=== PATIENT | female | born 1930 | race Two or more races ===

== ENCOUNTER 2016-06-28 20:03 | Inpatient (IN) | payer MEDICARE, MEDICAID ==
[2016-06-28] MEDS ORDERED: Sodium Chloride 0.9% 1,000 ML IV ONE (20:29)
--- NOTE | 2016-06-28 20:39 | ED Physician Chart ---
Chief Complaint/HPI - Patient Information Date Seen:: 06/28/16 Time Seen:: 20:00 Chief Complaint:: Abnormal BUN, creat. History of Present Illness:: Pt. of Dr. Koroma sent in for abnl. lab BUN/creat = 100/3.91 Possibly not eating well, failure to thrive. Allergies:: Allergies Allergy/AdvReac Type Severity Reaction Status Date / Time Influenza Virus Vaccines Allergy Verified 06/28/16 20:17 pneumococcal vaccine Allergy Verified 06/28/16 20:17 Vitals:: Vital Signs - 8 hr 06/28/16 20:12 Temp 98.2 F HR 70 RR 19 BP 156/60 O2 Sat % 97 Historian:: EMS, Medical Records Review of Systems - Review of Systems General/Constitutional: No fever Skin: Skin lesions Eyes: No loss of vision Neck: No neck pain Cardio Vascular: No chest pain, No palpitations Pulmonary: No SOB GI: Other (loss of appetite) G/U: No dysuria Endocrine: Other (hx of DM) Allergic/Immuno: No urticaria Neurological: No syncope Past Medical History - Past Medical History Past Medical History: HTN, DM, CAD, CHF, Arthritis, Other (Hx of "chronic renal disease") Family History: Other (not obtainable) Social History: Non Smoker, No Alcohol, Care Facility Surgical History: None Medication Reviewed:: acetamenophen, atorvastatin, fenfibrate, folic, Fleets, Humulin/insulin, lasix Januvia, metoprolol, MOM, neurontin, nitro, Plavix Family Medical History - Family Member Mother History Unknown: Yes Physical Exam - Physical Examination General/Constitutional: Awake, Well-developed, well-nourished, Alert, No distress, Non-toxic appearing Other Gen/Cons comments:: confusion Head: Atraumatic Eyes: Lids, conjuctiva normal, PERRL, EOMI Skin: No skin lesions ENMT: External ears, nose nl, TM canals nl, Lips, teeth, gums nl, Oropharynx nl Neck: Nontender, Full ROM w/o pain Respiratory: Nl effort/Exclusion, Clear to Auscultation, No Wheeze/Rhonchi/Rales Cardio Vascular: RRR, No murmur, gallop, rubs GI: No tenderness/rebounding/guarding, No organomegaly : No CVA tenderness Extremities: No tenderness or effusion, normal strength in all extremities Neuro/Psych: DTR's symmetric, Normal motor strength, No focal deficits Misc: Normal back Labs/Radiology/EKG Results - Lab Results Results: CXR: borderline cardiomegally. No infiltrate. EKG: NSR at 68 with nl. axis. Poor R wave progression. CMP shows BUN/creat of 107/3.7 BNP normal.PT nl. PTT 23.2 CPK and EtOH normal.Ammonia nl. Mag. Nl. Trop normal. ED Septic Shock - . Is Septic Shock (SBP<90, OR Lactate>4 mmol\\L) present?: No - <6hrs of presentation: Vital Signs: Vital Signs - 8 hr 06/28/16 20:12 Temp 98.2 F HR 70 RR 19 BP 156/60 O2 Sat % 97 Reassessment (Disposition) - Reassessment Reassessment Condition:: Unchanged - Diagnosis Diagnosis:: Dx: Acute dehydration and renal failure. - Patient Disposition Discharge/Transfer:: Acute Care w/in this hosp Accepting Physician:: Dr. Etienne Time Called:: 2204 Time Responded:: 22:15 Discussion with Medical Provider:: Dr. Etienne will admit. He is giving orders. Admitted to:: Med/Surg Condition at Disposition:: Improved ED Discharge Plan - Patient Disposition Admit/Discharge/Transfer: Acute Care w/in this hosp Condition at Disposition: Guarded
[2016-06-28 20:49] LABS: % BASOPHILS 0.4 % (0.0-2.0); % EOSINOPHILS 2.1 % (0.0-5.0); % LYMPHOCYTES 35.4 % (20.0-50.0); % MONOCYTES 9.9 % (2.0-10.0); % NEUTROPHILS 52.2 % (40.0-80.0); HEMATOCRIT 47.8 % (35.0-45.0); HEMOGLOBIN 14.9 gm/dL (11.7-16.1); MEAN CELL VOLUME 85.6 fl (81-100); MEAN CORPUSCULAR HEMOGLOBIN 26.7 pg (27.0-31.0); MEAN CORPUSCULAR HGB CONC 31.2 pg (28.0-36.0); MEAN PLATELET VOLUME 10.7 fl; NEUTROPHILE ABSOLUTE 4.1 Th/cmm (1.8-8.0); PLATELET COUNT 164 Th/cmm (150-400); RED BLOOD COUNT 5.58 Mil/cmm (3.80-5.20); RED CELL DISTRIBUTION WIDTH 13.8 % (11.5-20.0); WHITE BLOOD COUNT 7.9 Th/cmm (4.8-10.8)
[2016-06-28 20:59] LABS: INR 1.04 (0.5-1.4); PROTHROMBIN TIME (TEST) 10.3 SECONDS (9.5-11.5)
[2016-06-28 21:03] LABS: ALKALINE PHOSPHATASE 87 U/L (34-104); ANION GAP 15.9 (7.0-16.0); BILIRUBIN,TOTAL 0.4 mg/dL (0.3-1.0); BUN/CREATININE RATIO 28.9; CALCIUM SERUM 10.2 mg/dL (8.6-10.3); CARBON DIOXIDE 28.8 mEq/L (21.0-31.0); CHLORIDE 90 mEq/L (98-107); CREATININE - SERUM 3.7 mg/dL (0.6-1.2); GLUCOSE 329 mg/dL (70-105); POTASSIUM SERUM 4.7 mEq/L (3.5-5.1); SGOT 20 U/L (13-39); SGPT/ALT 15 U/L (7-52); SODIUM SERUM 130 mEq/L (136-145)
[2016-06-28 21:18] LABS: BUN - UREA NITROGEN 107 mg/dL (7-25)
[2016-06-28 21:28] LABS: CREATINE KINASE MB 2.8 ng/mL (0.6-6.3)
--- NOTE | 2016-06-29 00:35 | Admit Criteria Form ---
Admit Criteria Forms - Admit Criteria Diagnosis: DEHYDRATION Clinical Indications for Admission to Inpatient Care (Place 'X' for any and all applicable criteria): Admission is indicated for ANY ONE of the following (1)(2)(3)(4)(5): [X ]I. Inpatient admission required rather than observation care (see Dehydration: Observation Care guideline as appropriate) because of ANY ONE of the following: [ ]a) Vomiting that is severe or persistent [ ]b) Severe electrolyte abnormalities requiring inpatient care [ ]c) Hemodynamic instability [ ]d) IV fluid to replace significant ongoing losses (greater than 3 L/m2 per day (10) (11) [ ]e) Parenteral nutrition regimen that must be implemented on inpatient basis [ X]f) Other condition,treatment or monitoring requiring inpatient admission [ ]II. Serious cause for dehydration requiring acute hospitalization (eg, bowel obstruction, increased intracranial pressure, infectious cause) Extended stay beyond goal length of stay may be needed for(1)(3 )(4)(17): [ ]a) Chronic severe dehydration [ ]b) Persistent vital sign changes, severe electrolyte imbalance, or diagnosed cause of dehydration that requires continued hospitalization (eg, bowel obstruction, increased intracranial pressure) [ ]c) Older patients (65 years or older) [ ]d) Severe comorbid illness (eg, renal failure, heart failure, poorly controlled diabetes) The original [employer] content created by [employer] has been revised. The portions of the content which have been revised are identified through the use of italic text or in bold, and [facility] has neither reviewed nor approved the modified material. All other unmodified content is copyright [employer] [facility] [facility]. Please see references footnoted in the original [employer] [facility] edition 2016 Admit Criteria Met?: Yes
[2016-06-29] MEDS: Sodium Chloride 0.9% 1,000 ML IV SCH ×2 (00:51→13:56)
[2016-06-29 04:52] VITALS: BP 126/58
[2016-06-29] MEDS: INSULIN ASPART, RECOMBINANT 100 UNITS/ML SUBQ SCH ×4 (06:47→21:00)
[2016-06-29 07:08] LABS: % BASOPHILS 0.7 % (0.0-2.0); % EOSINOPHILS 2.5 % (0.0-5.0); % LYMPHOCYTES 37.8 % (20.0-50.0); % MONOCYTES 10.6 % (2.0-10.0); % NEUTROPHILS 48.4 % (40.0-80.0); HEMATOCRIT 43.6 % (35.0-45.0); HEMOGLOBIN 14.2 gm/dL (11.7-16.1); MEAN CELL VOLUME 83.8 fl (81-100); MEAN CORPUSCULAR HEMOGLOBIN 27.3 pg (27.0-31.0); MEAN CORPUSCULAR HGB CONC 32.6 pg (28.0-36.0); MEAN PLATELET VOLUME 10.5 fl; NEUTROPHILE ABSOLUTE 3.3 Th/cmm (1.8-8.0); PLATELET COUNT 149 Th/cmm (150-400); RED BLOOD COUNT 5.21 Mil/cmm (3.80-5.20); RED CELL DISTRIBUTION WIDTH 13.4 % (11.5-20.0); WHITE BLOOD COUNT 6.8 Th/cmm (4.8-10.8)
[2016-06-29 07:37] LABS: ALKALINE PHOSPHATASE 77 U/L (34-104); ANION GAP 14.8 (7.0-16.0); BILIRUBIN,TOTAL 0.3 mg/dL (0.3-1.0); BUN/CREATININE RATIO 32.1; CALCIUM SERUM 9.3 mg/dL (8.6-10.3); CHLORIDE 94 mEq/L (98-107); CREATININE - SERUM 3.4 mg/dL (0.6-1.2); GLUCOSE 259 mg/dL (70-105); POTASSIUM SERUM 3.8 mEq/L (3.5-5.1); SGOT 15 U/L (13-39); SGPT/ALT 13 U/L (7-52); SODIUM SERUM 131 mEq/L (136-145)
[2016-06-29 07:53] LABS: BUN - UREA NITROGEN 109 mg/dL (7-25)
[2016-06-29 08:05] LABS: MAGNESIUM 2.2 mg/dL (1.9-2.7)
[2016-06-29] MEDS ORDERED: Fleet Enema 135 mL RC SCH (08:45)
[2016-06-29] MEDS ORDERED: Non-Formulary Item 1 EA (Cranberry Fruit Concentrate [Cranberry] 450 MG) PO SCH (09:00)
[2016-06-29] MEDS ORDERED: VTE Chemical Prophylaxis Screen/Admission MC PRN (09:20)
[2016-06-29] MEDS ORDERED: Fleet Enema 135 mL RC PRN (09:54)
[2016-06-29] MEDS: Polyvinyl Alcohol Ophth Soln 15 mL Bottle EACH EYE SCH ×2 (10:04→16:28)
[2016-06-29] MEDS: Ferrous Sulfate 325 MG TAB PO SCH ×2 (10:05→16:28)
[2016-06-29] MEDS: DOPamine 400 MG/250 ML BAG IV PRN (10:09)
--- NOTE | 2016-06-29 11:23 | History & Physical ---
PATIENT IDENTIFICATION: The patient is an 85-year-old female. CHIEF COMPLAINT: Sent to Emergency Room for abnormal labs evaluation. HISTORY OF PRESENT ILLNESS: An 85-year-old female with history of type 2 diabetes, hypertension, coronary artery disease, chronic syndrome, CKD III, has been living at [facility] followed by Dr. Thorpe as an outpatient, noted by nursing staff that her routine lab revealed BUN and creatinine of 100+ with creatinine of 3, which was more than expected. The patient was on diuretics. The patient has been having more p.o. intake as well. The patient was sent to Emergency Room and after being evaluated by Emergency Room Chris, the patient has been admitted to the hospital for further treatment. PAST MEDICAL HISTORY: Remarkable for: 1. Diabetes. 2. Hypertension. 3. Hyperlipidemia. 4. Chronic kidney disease. 5. DJD. 6. Peripheral vascular disease. 7. Peripheral neuropathy. 8. Coronary artery disease. MEDICATIONS AT HOME: The patient is taking multiple medications, which includes atorvastatin, benazepril, metoprolol, magnesium oxide, Lasix, metolazone, insulin, Plavix, fenofibrate, cranberry juice, ferrous sulfate, fleets enema, folic acid, gabapentin, sitagliptin and topiramate. ALLERGIES: THE PATIENT IS ALLERGIC TO INFLUENZA VIRUS AND PNEUMOCOCCAL VACCINE. SOCIAL HISTORY: The patient is a intermediate resident. No smoking cigarette, alcohol or drug use. FAMILY MEDICAL HISTORY: Remarkable for diabetes and hypertension. REVIEW OF SYSTEMS: The patient admits to feel very weak and tired. The patient currently denies any chest pain. Denies any shortness of breath or palpitation. Has a very poor p.o. intake. Denies any seizure or syncopal episode. Denies any headache. Denies any diarrhea, dysuria, hematuria, hematochezia, melena. No seizure or syncopal episode. PHYSICAL EXAMINATION: GENERAL: The patient is alert, awake, oriented, lying in the bed. VITAL SIGNS: Temperature 97.9, pulse is 77, respiratory rate 18, blood pressure 138/64. SKIN: Warm to touch. HEENT: Normocephalic, atraumatic. Extraocular muscles are intact. Tongue was pink and coated. Poor dentition noted. NECK: Supple, no JVD, no hepatojugular reflux, no lymphadenopathy, thyromegaly or carotid bruit. HEART: Both heart sounds are regular. No S3, no S4. CHEST: Lung equal in expansion with no expiratory wheezing. ABDOMEN: Soft. No guarding, no rigidity. Liver and spleen not palpable. No palpable mass. EXTREMITIES: No edema, no cyanosis. Peripheral pulses +1. No calf tenderness. NEUROLOGIC: Alert, awake, oriented to time, place, and person, 2-12 cranial nerves are intact. Power in upper and lower extremities 5-. Sensation to touch intact. [place] in both toes are going down. AVAILABLE DIAGNOSTIC DATA: Performed in the Emergency Room remarkable for BUN and creatinine of 107 and 3.7 with glucose of ____, calcium 10.2. AST and ALT are normal. CPKs are normal. Albumin, globulins and thyroid functions are also normal. Hemoglobin is also normal. Chest x-ray has no infiltrate, no congestions. CLINICAL IMPRESSION: 1. Acute on chronic kidney injury. 2. Diabetes. 3. Hypertension. 4. Chronic kidney disease, III. 5. Peripheral vascular disease. 6. Coronary artery disease. 7. Degenerative joint disease. 8. Decrease in p.o. intake, probably from uremia. PLAN: 1. Admit this patient to [facility]. 2. IV fluids. 3. Hold diuretics. 4. Renal dose dopamine. 5. Nephrology consultation. 6. Glucoscan a.c. and bedtime. 7. Sliding scale insulin. 8. Appropriate home medicine reconciliation. 9. Follow lab. 10. Follow consult recommendation. 12. Care plan reviewed and discussed with staff. JOB# [id number]
--- NOTE | 2016-06-29 11:27 | Diagnostic Imaging Report ---
Portable chest x-ray History: Cough Allowing for portable technique the heart size is normal. Atherosclerotic calcination seen in the aortic arch. No focal pulmonary parenchymal processes. No hilar or mediastinal abnormalities. Impression: No acute abnormalities.
[2016-06-29 12:20] LABS: URINE BILIRUBIN NEGATIVE (NEGATIVE); URINE BLOOD NEGATIVE (NEGATIVE); URINE COLOR YELLOW; URINE GLUCOSE (UA) NEGATIVE (NEGATIVE); URINE KETONE NEGATIVE (NEGATIVE); URINE PROTEIN NEGATIVE (NEGATIVE); URINE UROBILINOGEN 0.2 E.U./dL (0.2 - 1.0)
[2016-06-29 12:24] LABS: URINE BACTERIA NONE SEEN /hpf (NONE SEEN); URINE EPITHELIAL CELLS FEW /lpf (FEW); URINE RBC NONE SEEN /hpf (0-5); URINE WBC NONE SEEN /hpf (0-5)
[2016-06-29 13:02] LABS: AMPHETAMINE URINE NEGATIVE (NEGATIVE); BARBITURATES URINE NEGATIVE (NEGATIVE)
--- NOTE | 2016-06-29 19:40 | Consultation ---
RENAL CONSULTATION LOCATION: [facility] ICU, bed number 8. ATTENDING PHYSICIAN: Dr. Etienne. I thank you very much to Dr. Etienne for this consult. IDENTIFICATION: This is an 85-year-old female patient known to me for last many years. I am following this patient in the office for her CKD and CHF. HOSPITAL COURSE: The patient was seen about 6 weeks ago in the office. The patient lately has worsening of the leg swelling, not improving with the positioning and Lasix. At that time, the patient was started on Zaroxolyn with good response. Meanwhile, the patient was supposed to see me in the office after the blood test done. The blood tests were suggestive of severe kidney failure and hence the patient has been now admitted for further treatment. The patient is conscious and alert. She has a good oxygen saturation, but she becomes hypoxic while she is sleeping. Church catheter has been placed in. The patient has a good urine output at this time. The patient denies any complaint of chest pain or shortness of breath. Her leg swelling has subsided. She denies any fever. No history of vomiting or diarrhea. The patient does have severe weakness. The patient is accompanied by the family members at this time. There is no history of hematuria. No history of melena. No history of any sore throat, or lymphadenopathy. The patient is taking all her medication at shelter regularly. The patient is a resident of a shelter. PAST MEDICAL AND SURGICAL HISTORY: History of coronary artery disease, history of CHF, diabetes mellitus, diabetic neuropathy, diabetic nephropathy, hyperlipidemia, hypertension, obesity, DJD, and obstructive sleep apnea. MEDICATIONS: The patient's medications at shelter include insulin, Plavix, fenofibrate, ferrous sulfate, folic acid, gabapentin, , sitagliptin, atorvastatin, , Lasix, and Zaroxolyn. SOCIAL HISTORY: No history of alcoholism and smoking. PHYSICAL EXAMINATION: GENERAL: This is an 85-year-old female patient conscious, alert, not in acute distress. VITAL SIGNS: Blood pressure initially was as low as 106/49, at this time 129/57; respirations 16, oxygen saturation 95, and heart rate 94. Yesterday intake 445, output 330. Today, intake is 1465 with urine output of about 1000 mL. HEENT: Head is normocephalic and atraumatic. Ear, nose, and throat: No discharge or bleeding. NECK: No stiffness and no lymphadenopathy. LUNGS: Good air entry. No rales or rhonchi. HEART: Regular. [place] in sixth intercostal space outside the midclavicular line. ABDOMEN: Soft and nondistended. Bowel sounds present. No flank tenderness. No suprapubic fullness. EXTREMITIES: No edema of the leg. Trace ankle edema. No calf tenderness. SIGNIFICANT LAB: WBC 6.8, hemoglobin 14.2, and platelet count 149,000. Sodium 130, potassium 4.7, chloride 90, CO2 of 28, BUN 107, creatinine 3.7, glucose 329, calcium 10.2, phosphorus 4, magnesium 2.2, and albumin 3.5. Urinalysis negative for nitrite, cast, and wbc. Lethal alcohol less than 10. ASSESSMENT: 1. An 85-year-old female patient with worsening of chronic kidney disease 3-4. 2. Volume depletion. 3. History of hypertension. 4. Diabetes mellitus. 5. Hyperlipidemia. 6. Peripheral vascular disease. 7. Obstructive sleep apnea. 8. Obesity. 9. History of coronary artery disease. 10. History of congestive heart failure. PLAN: There is no clinical evidence of CHF at this time. We will hold diuretics, GEOVANY inhibitors, and statin on this patient. Start the patient on IV hydration and IV renal dose dopamine. Obtain urine for eosinophil count. Obtain phosphorus, TSH, and CMP in the morning. Kidney ultrasound has been ordered. We will also check echocardiogram. Case has been discussed with the patient's family at length. If the patient does not improve, then she may need dialysis. Hopefully, the patient will start improving since urine output is increasing. I will follow this patient with you. JOB# [id number]
[2016-06-29] MEDS ORDERED: Non-Formulary Item 1 EA (Atorvastatin Calcium [Lipitor] 20 MG) PO SCH (21:00)
[2016-06-29] MEDS ORDERED: Non-Formulary Item 1 EA (Fenofibrate Nanocrystallized [Tricor] 145 MG) PO SCH (21:00)
[2016-06-30] MEDS: Sodium Chloride 0.9% 1,000 ML IV SCH ×2 (04:51→18:24)
[2016-06-30 05:17] LABS: % BASOPHILS 0.9 % (0.0-2.0); % LYMPHOCYTES 30.3 % (20.0-50.0); % MONOCYTES 8.5 % (2.0-10.0); % NEUTROPHILS 59.3 % (40.0-80.0); HEMATOCRIT 45.1 % (35.0-45.0); HEMOGLOBIN 14.9 gm/dL (11.7-16.1); MEAN CELL VOLUME 83.3 fl (81-100); MEAN CORPUSCULAR HEMOGLOBIN 27.5 pg (27.0-31.0); MEAN PLATELET VOLUME 11.1 fl; NEUTROPHILE ABSOLUTE 5.4 Th/cmm (1.8-8.0); PLATELET COUNT 166 Th/cmm (150-400); RED BLOOD COUNT 5.41 Mil/cmm (3.80-5.20); RED CELL DISTRIBUTION WIDTH 14.2 % (11.5-20.0)
[2016-06-30 05:29] LABS: WHITE BLOOD COUNT 9.2 Th/cmm (4.8-10.8)
[2016-06-30 05:38] LABS: ALKALINE PHOSPHATASE 75 U/L (34-104); ANION GAP 11.5 (7.0-16.0); BILIRUBIN,TOTAL 0.4 mg/dL (0.3-1.0); BUN/CREATININE RATIO 35.8; CALCIUM SERUM 9.2 mg/dL (8.6-10.3); CARBON DIOXIDE 24.7 mEq/L (21.0-31.0); CHLORIDE 100 mEq/L (98-107); CREATININE - SERUM 2.6 mg/dL (0.6-1.2); GLUCOSE 322 mg/dL (70-105); MAGNESIUM 2.1 mg/dL (1.9-2.7); PHOSPHOROUS 3.2 mg/dL (2.5-5.0); POTASSIUM SERUM 4.2 mEq/L (3.5-5.1); SGOT 17 U/L (13-39); SGPT/ALT 15 U/L (7-52); SODIUM SERUM 132 mEq/L (136-145)
[2016-06-30 06:12] LABS: BUN - UREA NITROGEN 93 mg/dL (7-25)
[2016-06-30] MEDS ORDERED: Non-Formulary Item 1 EA (Insulin Aspart Mix 70/30 [Novolog Mix 70/30] 30 UNITS) SUBQ SCH (06:30)
[2016-06-30] MEDS: INSULIN ASPART, RECOMBINANT 100 UNITS/ML SUBQ SCH ×4 (06:58→20:16)
[2016-06-30] MEDS: INSULIN ASPART MIX SUBQ SCH (07:27)
[2016-06-30] MEDS: Polyvinyl Alcohol Ophth Soln 15 mL Bottle EACH EYE SCH ×2 (08:25→16:39)
[2016-06-30] MEDS: Ferrous Sulfate 325 MG TAB PO SCH ×2 (08:26→16:38)
--- NOTE | 2016-06-30 20:09 | Cardiology ---
Patient of Dr. Etienne. M-MODE ECHOCARDIOGRAM: M-mode technically poor. 2D ECHO: Only structure visualized in apical 4-chamber view, which showed normal-sized left ventricle with hypertrophy of the left ventricle. Left atrium normal. Right ventricular cavity, right atrium normal. No pericardial effusion. CONCLUSION: Hypertrophy of the left ventricle, ejection fraction 55%. Doppler study shows trace tricuspid regurgitation. JOB# [id number]
[2016-07-01 05:14] LABS: % LYMPHOCYTES 25.6 % (20.0-50.0); MEAN PLATELET VOLUME 10.9 fl
[2016-07-01 05:20] LABS: % BASOPHILS 0.4 % (0.0-2.0); % EOSINOPHILS 1.6 % (0.0-5.0); % MONOCYTES 8.7 % (2.0-10.0); % NEUTROPHILS 63.7 % (40.0-80.0); HEMATOCRIT 43.7 % (35.0-45.0); HEMOGLOBIN 14.4 gm/dL (11.7-16.1); MEAN CELL VOLUME 83.9 fl (81-100); MEAN CORPUSCULAR HEMOGLOBIN 27.6 pg (27.0-31.0); MEAN CORPUSCULAR HGB CONC 32.9 pg (28.0-36.0); NEUTROPHILE ABSOLUTE 6.4 Th/cmm (1.8-8.0); PLATELET COUNT 159 Th/cmm (150-400); RED BLOOD COUNT 5.21 Mil/cmm (3.80-5.20); RED CELL DISTRIBUTION WIDTH 13.9 % (11.5-20.0); WHITE BLOOD COUNT 10.1 Th/cmm (4.8-10.8)
[2016-07-01 05:52] LABS: ALB/GLOB RATIO 0.9 (1.0-1.8); ALKALINE PHOSPHATASE 66 U/L (34-104); ANION GAP 12.8 (7.0-16.0); BILIRUBIN,TOTAL 0.3 mg/dL (0.3-1.0); BUN - UREA NITROGEN 69 mg/dL (7-25); BUN/CREATININE RATIO 34.5; CALCIUM SERUM 9.1 mg/dL (8.6-10.3); CARBON DIOXIDE 24.4 mEq/L (21.0-31.0); CHLORIDE 102 mEq/L (98-107); GLUCOSE 301 mg/dL (70-105); POTASSIUM SERUM 4.2 mEq/L (3.5-5.1); SGOT 13 U/L (13-39); SGPT/ALT 12 U/L (7-52); SODIUM SERUM 135 mEq/L (136-145)
[2016-07-01] MEDS: DOPamine 400 MG/250 ML BAG IV PRN (06:39)
[2016-07-01] MEDS: INSULIN ASPART, RECOMBINANT 100 UNITS/ML SUBQ SCH ×4 (06:41→20:31)
[2016-07-01] MEDS: INSULIN ASPART MIX SUBQ SCH (06:44)
[2016-07-01] MEDS: Sodium Chloride 0.9% 1,000 ML IV SCH ×2 (06:53→13:02)
[2016-07-01] MEDS: INSULIN 70/30 100 UNITS/ML SUBQ SCH (08:15)
[2016-07-01] MEDS: Polyvinyl Alcohol Ophth Soln 15 mL Bottle EACH EYE SCH ×2 (08:41→16:15)
[2016-07-01] MEDS: Ferrous Sulfate 325 MG TAB PO SCH ×2 (08:42→16:15)
[2016-07-01] MEDS: Sodium Chloride 0.45% 1,000 ML IV SCH (14:00)
[2016-07-01] MEDS: Insulin Detemir 100 units/mL 10mL Vial SUBQ SCH (21:00)
[2016-07-02 05:17] LABS: HEMOGLOBIN 13.5 gm/dL (11.7-16.1)
[2016-07-02 05:39] LABS: ALB/GLOB RATIO 0.9 (1.0-1.8); ALKALINE PHOSPHATASE 59 U/L (34-104); ANION GAP 9.3 (7.0-16.0); BILIRUBIN,TOTAL 0.3 mg/dL (0.3-1.0); BUN - UREA NITROGEN 59 mg/dL (7-25); BUN/CREATININE RATIO 29.5; CARBON DIOXIDE 24.9 mEq/L (21.0-31.0); CHLORIDE 101 mEq/L (98-107); GLUCOSE 238 mg/dL (70-105); POTASSIUM SERUM 4.2 mEq/L (3.5-5.1); SGOT 11 U/L (13-39); SGPT/ALT 10 U/L (7-52); SODIUM SERUM 131 mEq/L (136-145)
[2016-07-02 05:54] LABS: % BASOPHILS 0.6 % (0.0-2.0); % EOSINOPHILS 1.8 % (0.0-5.0); % LYMPHOCYTES 30.5 % (20.0-50.0); % MONOCYTES 7.8 % (2.0-10.0); % NEUTROPHILS 59.3 % (40.0-80.0); MEAN CELL VOLUME 85.5 fl (81-100); MEAN CORPUSCULAR HEMOGLOBIN 27.6 pg (27.0-31.0); MEAN CORPUSCULAR HGB CONC 32.3 pg (28.0-36.0); MEAN PLATELET VOLUME 10.7 fl; NEUTROPHILE ABSOLUTE 5.6 Th/cmm (1.8-8.0); PLATELET COUNT 141 Th/cmm (150-400); RED BLOOD COUNT 4.91 Mil/cmm (3.80-5.20); WHITE BLOOD COUNT 9.5 Th/cmm (4.8-10.8)
[2016-07-02] MEDS: Sodium Chloride 0.45% 1,000 ML IV SCH (06:26)
[2016-07-02] MEDS: INSULIN 70/30 100 UNITS/ML SUBQ SCH (06:28)
[2016-07-02] MEDS ORDERED: INSULIN 70/30 100 UNITS/ML SUBQ SCH (06:30)
[2016-07-02] MEDS: INSULIN ASPART, RECOMBINANT 100 UNITS/ML SUBQ SCH ×4 (06:33→21:06)
[2016-07-02] MEDS: Polyvinyl Alcohol Ophth Soln 15 mL Bottle EACH EYE SCH ×2 (10:11→17:18)
[2016-07-02] MEDS: Ferrous Sulfate 325 MG TAB PO SCH (10:11)
[2016-07-02] MEDS ORDERED: Probiotic Screen MC PRN (14:27)
[2016-07-02] MEDS: Insulin Detemir 100 units/mL 10mL Vial SUBQ SCH (21:20)
--- NOTE | 2016-07-03 04:18 | Consultation ---
The patient of Dr. Etienne. HISTORY AND PHYSICAL: This is an 85-year-old female patient with a known history of congestive heart failure, CKD stage III had been ____ the patient had more swelling in the legs, shortness of breath, elevated BUN and creatinine and at this time, the patient was sent to the Emergency Room and admitted to ICU. No history of PND or orthopnea. The patient is sleepy and lethargic at the present time. PAST MEDICAL HISTORY: The patient has a history of diabetes mellitus type 2, diabetic CKD stage III, congestive heart failure, diastolic dysfunction, hypertension, hyperlipidemia, diabetic peripheral vascular disease, diabetic peripheral neuropathy, stable angina, obstructive sleep apnea, obesity and osteoporosis. The patient is wheelchair bound. FAMILY HISTORY: Unremarkable. SOCIAL HISTORY: No history of smoking or alcohol abuse. ALLERGIES: The patient is allergic to pneumonia and penicillin vaccine. PHYSICAL EXAMINATION: VITAL SIGNS: Blood pressure 128/82, pulse 70, respirations 28. HEAD: Normocephalic. No lumps or bumps. EYES: Pupils equal, reactive to light. Fundi show AV nicking, sclerae white, conjunctivae pink. NECK: Carotid 2+. Normal upstroke. JVD flat. Thyroid not palpable. Lymph nodes not palpable. CHEST: Shows increased AP diameter. No kyphosis, scoliosis. LUNGS: Bilateral bronchovesicular breath sounds. HEART: PMI fifth intercostal space with lateral to midclavicular line. S1, S2. No S3, S4. Systolic murmur, grade 2/6, lower left sternal border without radiation. ABDOMEN: Soft. Liver, spleen not palpable. Hepatojugular reflex positive, bowel sounds active. RECTAL: Deferred. EXTREMITIES: Peripheral pulses 2+. No pedal edema. CLINICAL IMPRESSION: Congestive heart failure, diastolic dysfunction, diabetes mellitus type 2, diabetic CKD stage III, acute on chronic, hypertension, hyperlipidemia, diabetic peripheral vascular disease, diabetic peripheral neuropathy, stable angina, obstructive sleep apnea, obesity and osteoporosis. PLAN: Admit the patient. We will continue the patient on present care. The patient also to get echocardiogram and follow the patient closely in ICU. JOB# [id number]
[2016-07-03 06:03] LABS: ANION GAP 10.7 (7.0-16.0); BUN - UREA NITROGEN 46 mg/dL (7-25); BUN/CREATININE RATIO 27.1; CALCIUM SERUM 9.1 mg/dL (8.6-10.3); CARBON DIOXIDE 21.4 mEq/L (21.0-31.0); CHLORIDE 106 mEq/L (98-107); CREATININE - SERUM 1.7 mg/dL (0.6-1.2); GLUCOSE 220 mg/dL (70-105); POTASSIUM SERUM 5.1 mEq/L (3.5-5.1); SODIUM SERUM 133 mEq/L (136-145)
[2016-07-03] MEDS: INSULIN ASPART, RECOMBINANT 100 UNITS/ML SUBQ SCH ×2 (06:40→11:23)
[2016-07-03] MEDS: INSULIN 70/30 100 UNITS/ML SUBQ SCH (07:25)
[2016-07-03] MEDS ORDERED: OXYMETAZOLINE NS PRN (08:37)
[2016-07-03] MEDS ORDERED: Guaifenesin DM 10 ML UDC PO PRN (08:38)
[2016-07-03] MEDS ORDERED: Docusate Sodium/Senna Tab PO SCH (09:00)
[2016-07-03] MEDS ORDERED: MINERAL OIL ENEMA 135 ML BOTTLE RC ONE (09:00)
[2016-07-03] MEDS: Polyvinyl Alcohol Ophth Soln 15 mL Bottle EACH EYE SCH (09:14)
--- NOTE | 2016-07-06 09:31 | Discharge Summary ---
PRINCIPAL DIAGNOSES: 1. Acute kidney injury. 2. 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 3. Diabetes mellitus. 4. Hypertension. 5. Diastolic dysfunction. 6. Congestive heart failure. 7. Coronary artery disease. 8. Degenerative joint disease. 9. Debility. 10. Obstructive sleep apnea. BRIEF STATEMENT FOR THE REASON FOR ADMISSION: This is an 85-year-old female resident of [facility] sent to Emergency Room for abnormal BUN and creatinine with increasing lethargy. Please refer to my dictated H and P for further information. HOSPITAL COURSE: The patient was admitted to Telemetry Unit. The patient was given IV fluid. Nephrology consultation was requested. The patient was also seen by psychiatric therapist in the presence of an abnormal EKG. The patient was followed by both the consultants. The patient was also given renal-dose dopamine. Labs were followed. The patient had echocardiogram, which revealed ejection fraction of 55%. The patient continues to show sign of improvement with currently prescribed therapy after talking to the pci security consultant, and her BUN and creatinine came back to the baseline of 46 and 1.7. The patient's diabetes was not controlled. The patient was also placed on Levemir insulin along with the scheduled insulin therapy. The patient needed to have a rehabilitation, so decision was made that the patient should be discharged back to [facility]. At the time of discharge, all of her meds were reconciliated, and the patient's new prescriptions were also given, and the patient will be followed by myself and my nurse practitioner. JOB# [id number]
== END 2016-07-03 12:50 | DRG 291 ==
LOC: ER 20:03 → ICU 22:30
PROVIDERS: ADMIT Internal Medicine; ATTEND Internal Medicine
DX: I13.0 Hypertensive heart and chronic kidney disease with heart failure and stage 1 through stage 4 chronic kidney disease, or unspecified chronic kidney disease (principal); N17.0 Acute kidney failure with tubular necrosis; I50.30 Unspecified diastolic (congestive) heart failure; E11.22 Type 2 diabetes mellitus with diabetic chronic kidney disease; E11.51 Type 2 diabetes mellitus with diabetic peripheral angiopathy without gangrene; N18.3 Chronic kidney disease, stage 3 (moderate); M19.90 Unspecified osteoarthritis, unspecified site; E78.5 Hyperlipidemia, unspecified; M81.0 Age-related osteoporosis without current pathological fracture; E66.9 Obesity, unspecified; G47.33 Obstructive sleep apnea (adult) (pediatric); I25.119 Atherosclerotic heart disease of native coronary artery with unspecified angina pectoris; E11.42 Type 2 diabetes mellitus with diabetic polyneuropathy; Z79.4 Long term (current) use of insulin; Z79.899 Other long term (current) drug therapy; Z83.3 Family history of diabetes mellitus; Z82.49 Family history of ischemic heart disease and other diseases of the circulatory system; Z88.7 Allergy status to serum and vaccine; Z68.36 Body mass index [BMI] 36.0-36.9, adult
CPT/HCPCS: 36415-UA; 71010-TC; 7610; 80048-TC; 80053-TC; 80320-TC; 81001-TC; 82140-TC; 82550-TC; 82553; 82948-90; 83036-90; 83735-TC; 83880-TC; 84100-TC; 84443-TC; 84484-TC; 85025-TC; 85610-TC; 85730-TC; 93005; J1265; J1815; J7030; Z7610